=== PATIENT | male | born 1980 | race African-American/Black ===

== ENCOUNTER 2016-06-20 21:04 | Emergency (ER) | payer OTHER ==
[2016-06-20 21:08] VITALS: BP 131/81; PULSE 90; O2SAT 97
--- NOTE | 2016-06-20 22:46 | ED.REPORT ---
HPI- Male Date of Service Jun 20, 2016 ED Provider: MD Tylor This is a 36 year old male presenting to the emergency department complaining of dysuria that began today. Pt had two episodes of painful urination today and noticed cloudy urine. Denies fever, chills, abdominal pain, lower extremity swelling, nausea, vomiting, or changes in sexual partners. Nursing Notes Stated Complaint: POSS UTI Chief Complaint: Male Abdominal Pain Nursing Notes Reviewed: Yes Allergies: Coded Allergies: No Known Allergies (Unverified , 06/20/16) General Time Seen by MD: 22:45 Chief Complaint Abdominal pain... Hx Obtained From: Patient Arrived By: Walk-in Onset Occurred: 5 - 8 hours ago Symptom Duration: Since onset Severity: Current: Mild Pertinent Negative: Pt denies other symptoms Recent Healthcare: No recent doctor visit, No recent hospitalization Similar Sx Previous: No Past Medical History Past Medical History Denies Past Surgical History Denies Smoking History Light Tobacco Smoker Ambulatory Status Independent Review of Systems Constitutional: Denies: Chills, Fever GI: Denies: Abdominal pain, Nausea, Vomiting Male: Reports Dysuria, Denies Flank pain Musculoskeletal: Denies: Back pain Complete sys rev & neg: except as marked. Physical Exam Initial Vital Signs Vital Signs (First) Date Time Temp Pulse Resp B/P Pulse Ox O2 Delivery O2 Flow Rate FiO2 06/20/16 21:08 37.0 90 131/81 97 Room Air Initial VS: Reviewed General/Constitutional: Well-developed, Well-nourished Head / Eyes: Atraumatic, Normocephalic, PERRL ENT: Mucous membranes moist, Conjunctiva normal, No scleral icterus Neck: Supple, Non-tender, Full range of motion Respiratory: Breath sounds normal, Clear to auscultation, No respiratory distress Cardiovascular: Regular rate & rhythm, Heart sounds normal, Intact distal pulses Abdomen / GI: Soft, Non-tender, No guarding, No rebound, No distention Extremities: Vascular intact, Neuro intact, No swelling, No tenderness Skin: Warm, Dry, No cyanosis Neurologic: Alert, Oriented, Nonfocal Psychiatric: Mood/affect normal, Behavior normal, Normal thought content : Deferred Interpretation & Diagnostics Lab Results Interpretation Result Diagram: 06/20/16225606/20/16 225 Test 06/20/16 22:57 06/20/16 23:30 White Blood Count 5.8th/mm3 (3.8-10.1) Red Blood Count 4.72mil/mm3 (4.40-5.80) Hemoglobin 13.9g/dL (13.8-17.2) Hematocrit 40.3% (41.0-50.0) Mean Corpuscular Volume 85.4fL (81-100) Mean Corpuscular Hemoglobin 29.4pg (27.0-35.0) Mean Corpuscular Hemoglobin Concent 34.5% (32.0-37.0) Red Cell Distribution Width 13.3% (12.3-15.4) Platelet Count 234bil/L (150-400) Neutrophils (%) (Auto) 51.1% (40-74) Lymphocytes (%) (Auto) 37.1% (14-46) Monocytes (%) (Auto) 7.0% (4-12) Eosinophils (%) (Auto) 4.1% (0-5) Basophils (%) (Auto) 0.5% (0-3) Sodium Level 141mEq/L (134-144) Potassium Level 4.2mEq/L (3.5-5.2) Chloride Level 103mEq/L (97-108) Carbon Dioxide Level 24mmol/L (18-29) Blood Urea Nitrogen 13mg/dL (6-20) Creatinine 1.16mg/dL (0.76-1.27) Estimat Glomerular Filtration Rate 75mL/min (>59) Glucose Level 107mg/dL (60-99) Calcium Level 9.0mg/dL (8.5-10.1) Total Bilirubin 0.2mg/dL (0.0-1.2) Aspartate Amino Transf (AST/SGOT) 27U/L (0-50) Alanine Aminotransferase (ALT/SGPT) 48U/L (0-44) Alkaline Phosphatase 23U/L (25-150) Total Protein 7.0g/dL (6.4-8.4) Albumin 4.2g/dL (3.4-5.0) Hold [place] Top Tube Received (Received) Urine Color Yellow (YELLOW) Urine Appearance Clear (CLEAR,HAZY) Urine pH 6.0 (5.0-8.0) Urine Specific [place] 1.020 (1.003-1.035) Urine Protein Tracemg/dL (NEG,TRACE) Urine Glucose (UA) Negativemg/dL (NEGATIVE) Urine Ketones Negativemg/dL (NEGATIVE) Urine Occult Blood Negative (NEGATIVE) Urine Nitrite Negative (NEGATIVE) Urine Bilirubin Negative (NEGATIVE) Urine Urobilinogen 1.0mg/dL (NORMAL) Urine Leukocyte Esterase Small (NEGATIVE) Urine RBC 0-2/hpf (0-2) Urine WBC 11-50/hpf (0-5) Urine Epithelial Cells Occasional/hpf (NONE-MOD) Urine Crystals None seen (NONE SEEN) Urine Bacteria Few/hpf (NONE-FEW) Urine Hyaline Casts None/lpf (NONE) Urine Granular Casts None seen (NONE SEEN) Urine Waxy Casts None seen (NONE SEEN) Urine Red Blood Cell Casts None seen (NONE SEEN) Urine White Blood Cell Casts None seen (NONE SEEN) Urine Mucus None seen (None Seen) Urine Trichomonas None seen (NONE SEEN) Urine Yeast None (NONE SEEN) Urinalysis Comment None Urine Culture Reflexed Indicated Re-Eval/Medical Decision Med Decision/Clinical Course Healthy 36-year-old male with dysuria and urinary frequency. No historical features consistent with prostatitis or sexual transmitted infection. Urinalysis shows a large number of white blood cells. He has been treated for both sexually transmitted infections as well as gram-negative urinary tract pathogens. We will follow-up the urine culture and the chlamydia testing. Re-Evaluation/Progress : Time of Eval: 00:20 Re-Evaluation/Progress Note: Discussed lab and imaging results Counseled Regarding: Diagnosis, Lab results, Need for follow-up Discharge & Departure Impression: Primary Impression: Urinary tract infection Urinary tract infection type: acute cystitis Hematuria presence: without hematuria Qualified Code: N30.00 - Acute cystitis without hematuria Disposition: Home Discharge Condition All VS Reviewed: Yes Condition: Stable Patient Instructions: Urinary Tract Infection in Men (DC) Additional Instructions: Bactrim twice daily for 7 days. Doxycycline twice daily for 7 days. Drink plenty of liquids. You are being treated for a bladder infection as well as possible sexually transmitted infection. We should know in 48-72 hours exactly what is causing the white blood cells to appear in your urine. I would like to set up a follow-up with her primary care physician for later this week or early next week. He may need referral to a urologist as well. If the sexual transmitted infection test is possible the near positive that have your partner treated as well. Avoid direct sunlight while on the doxycycline. Return if any problems or any worsening symptoms. Referrals: [facility] Scribe Attestation Portions of this note were transcribed by Alvina Mejia. I, Dr. Snider personally performed the history, physical exam and medical decision-making; I reviewed and confirmed the accuracy of the information in the transcribed note. Signed by: Alvina Mejia. 06/20/2016, 03:00. Obed Snider DO Jun 20, 2016 22:46 ALVINA MEJIA Jun 20, 2016 22:52
[2016-06-20 23:15] LABS: BASOPHILS % (AUTO) 0.5 % (0-3); EOSINOPHILS % (AUTO) 4.1 % (0-5); Mean Corpuscular Hemoglobin 29.4 pg (27.0-35.0); Mean Corpuscular Volume 85.4 fL (81-100); NEUTROPHILS % (AUTO) 51.1 % (40-74); Platelet Count 234 bil/L (150-400)
[2016-06-20 23:55] LABS: APPEARANCE,URINE CLEAR (CLEAR,HAZY); COLOR,URINE YELLOW (YELLOW); OCCULT BLOOD,URINE NEGATIVE (NEGATIVE)
[2016-06-21] MEDS ORDERED: cefTRIAXone Inj 250 MG, Lidocaine PF 1% Inj 0.9 ML in Syringe 1 EACH IM ONE (00:20)
[2016-06-21] MEDS ORDERED: Trimethoprim-Sulfa 160 mg-800 mg Tablet PO ONE (00:35)
[2016-06-21 01:05] VITALS: BP 125/78; PULSE 88; O2SAT 97
== END 2016-06-21 01:10 | disposition home or self-care (01) ==
LOC: SED 21:04
DX: N30.00 Acute cystitis without hematuria (principal); F17.200 Nicotine dependence, unspecified, uncomplicated
CPT/HCPCS: 36415; 80053; 81000; 85025; 87086; 87491; 87591; 96372; 99284; J0696